=== PATIENT | male | born 1950 | race Caucasian/White ===

== ENCOUNTER 2020-02-25 12:34 | Outpatient (REF) | payer MEDICARE, MEDICAID, OTHER, SELFPAY ==
--- NOTE | 2020-02-25 12:43 | XR_ITS ---
EXAMINATION: XR PELVIS CLINICAL INFORMATION: Right artificial hip joint COMPARISON: None TECHNIQUE: AP view of the pelvis. Crosstable lateral view of the right hip. FINDINGS: There is a total right hip arthroplasty. The femoral head component articulates appropriately with the acetabular component. No periprosthetic lucency or fracture. The left hip is well aligned. There is moderate joint space narrowing with subchondral sclerosis and osteophyte formation. Mild degenerative changes of the lower lumbar spine. The pelvic rim is intact. The sacroiliac joints and pubic symphysis are intact. The visualized bowel gas pattern is unremarkable. IMPRESSION: Total right hip arthroplasty in typical positioning and alignment. Moderate degenerative changes of the left hip.
== END 2020-02-25 12:35 | disposition home or self-care (01) ==
LOC: HO.XRAY 12:34
PROVIDERS: PCP Internal Medicine; Referring Provider Internal Medicine; Visit Provider Orthopaedic Surgery
DX: T84.84XA Pain due to internal orthopedic prosthetic devices, implants and grafts, initial encounter (principal); Z96.641 Presence of right artificial hip joint
CPT/HCPCS: 72170; 99212

== ENCOUNTER 2020-06-10 11:10 | Outpatient (REF) | payer MEDICARE, MEDICAID, SELFPAY ==
--- NOTE | 2020-06-10 16:05 | MHC.AU.P13 ---
Adult Audiological Evaluation Date of Visit: 06/10/20 Reason for Appointment: Audiological evaluation due to concern for hearing loss. Patient notes that he has difficulties hearing and understanding speech in most situations. He notes that his hearing seems to worsening over time. 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 Does patient feel they have a hearing loss?: Yes If Yes, Which Ear?: Both Ears When Was Hearing Difficulty First Noticed?: 1997 Has hearing been tested previously?: Yes Previous Hearing Test Results: Patient notes he was tested at a hearing clinic in [place] at the [facility] in 1997 and he was told he had a hearing loss at that time. Hearing Handicap Inventory: HHIE SCORE: 28 Based on HHIE score, patient has: Severe perceived hearing handicap Ear History: History of Ear Wax Buildup: Both Ears, worse in left Bothersome Tinnitus/Ringing/Noises in Ears: Both Ears Medical History: Medical History: Dizziness or Unsteadiness, Headache, Stroke Medical History (Other): Right hip replacement 01/12/2020 Allergies: Bee stings Otoscopy: Right Ear: Unremarkable Left Ear: Occluded with cerumen. Removed successfully with curette and suction. Tympanometry: Tympanometry performed due to: To determine if cerumen blockage is fully occluding canal(s) Right Ear: Normal Middle Ear System (Type A) Left Ear: Normal Middle Ear System (Type A) Hearing Evaluation: Transducer(s) Used: Insert Earphones, Bone Conduction Method: Conventional Audiometry Stimuli Used: Pure Tones Right Ear: Description of Hearing: Moderate sloping to moderately severe sensorineural hearing loss from 250-8000 Hz. Left Ear: Description of Hearing: Moderate sloping to severe sensorineural hearing loss from 250-8000 Hz. Speech Recognition Threshold (SRT): Method Used: Monitored Live Voice Stimuli Used: Spondee Words Right Ear: 50 dBHL Left Ear: 50 dBHL Word Discrimination: Method: Recorded Lists Word Lists Used: NU-6 Right Ear: 60% at 75 dBHL, 88% at 80 dBHL Left Ear: 92% at 80 dBHL Most Comfortable Level (MCL): Right Ear: 70 dBHL Left Ear: 65 dBHL Recommendations: Audiological re-evaluation in one year. Trial with amplification is recommended. Binaural amplification is recommended to facilitate improved communication and for Mr. Berger's safety to alert him to sounds in his environment. He will contact his health insurance company regarding benefits and consider his options. Diagnosis: Primary Diagnosis: H90.3 Bilateral Sensorineural Hearing Loss Secondary Diagnosis: H93.13 Tinnitus, Bilateral Services Performed: Services Performed: Comprehensive Audiological Evaluation (CPT 03218) Tympanometry (CPT 48376) Signature: Provider: Jacque Lugo, CCC-A
== END 2020-06-10 11:11 | disposition home or self-care (01) ==
LOC: HO.SH 11:10
PROVIDERS: Visit Provider Internal Medicine
DX: H90.3 Sensorineural hearing loss, bilateral (principal); H93.13 Tinnitus, bilateral
CPT/HCPCS: 92557; 92567

== ENCOUNTER 2022-12-06 09:50 | Outpatient (REF) | payer MEDICARE, MEDICAID, SELFPAY ==
[2022-12-06 13:02] LABS: Prostate Specific Antigen 1.11 ng/mL (<0.05-4.0)
== END 2022-12-06 09:51 | disposition home or self-care (01) ==
LOC: HO.HHCL 09:50
PROVIDERS: Visit Provider Registered Nurse
DX: N40.1 Benign prostatic hyperplasia with lower urinary tract symptoms (principal); R39.16 Straining to void; Z12.5 Encounter for screening for malignant neoplasm of prostate
CPT/HCPCS: 36415; 84153

== ENCOUNTER 2024-02-19 14:16 | Outpatient (REF) | payer MEDICARE, MEDICAID, SELFPAY ==
--- NOTE | ~2024-02-19 | XR_ITS ---
EXAMINATION: XR HIP, LEFT CLINICAL INFORMATION: Left hip pain COMPARISON: February 2020. TECHNIQUE: Two views of the left hip. FINDINGS: No evidence for acute fracture or dislocation. Prominent acetabular spurring and left hip degenerative joint space narrowing similar to the previous evaluation. No acetabular or pubic disruption. There are spurring changes in the left greater trochanter which appears similar. Prostate calcifications noted. XR/XR hip LT min 2V IMPRESSION: No acute process. Degenerative changes. Electronically signed by: Varun Deleon MD 02/19/2024 04:55 PM EDT RP
--- NOTE | ~2024-02-19 | XR_ITS ---
EXAMINATION: XR KNEE, RIGHT CLINICAL INFORMATION: Right knee pain COMPARISON: None available. TECHNIQUE: Three views of the right knee. FINDINGS: No evidence for acute fracture or dislocation. No osteochondral lesions seen. No erosive process. Fibular head within normal limits. Small spurring of the patella. There is no significant joint effusion. XR/XR knee RT 3V IMPRESSION: No acute process. Small spurring of the patella. Electronically signed by: Varun Deleon MD 02/19/2024 04:51 PM EDT
--- NOTE | ~2024-02-19 | XR_ITS ---
EXAMINATION: XR HIP, RIGHT CLINICAL INFORMATION: Right hip pain COMPARISON: February 2020. TECHNIQUE: Two views of the right hip. FINDINGS: Right hip prosthesis in position. Acetabular spurring again observed. There is small spurring in the intertrochanteric region which appears to be stable. The hip prosthesis appears to be intact. No periprosthetic loosening seen. XR/XR hip RT min 2V IMPRESSION: No evidence for acute fracture or dislocation. Right hip prosthesis in position with stable osseous alignment since previous evaluation. Degenerative changes. Electronically signed by: Varun Deleon MD 02/19/2024 04:53 PM EDT
--- NOTE | ~2024-02-19 | XR_ITS ---
EXAMINATION: XR KNEE, LEFT CLINICAL INFORMATION: Left knee pain COMPARISON: None available. TECHNIQUE: Three views of the left knee. FINDINGS: No evidence for acute fracture or dislocation. There are no osteochondral lesions or distinct erosions. Slight chondrocalcinosis observed. Fibular head is intact. There is a small suprapatellar effusion. Small spurring of the patella is observed. XR/XR knee LT 3V IMPRESSION: 1. No acute process. Small suprapatellar effusion. 2. Slight chondrocalcinosis. Electronically signed by: Varun Deleon MD 02/19/2024 04:50 PM EDT
== END 2024-02-19 14:17 | disposition home or self-care (01) ==
LOC: HO.HHCX 14:16
PROVIDERS: Visit Provider Student in an Organized Health Care Education/Training Program
DX: M25.551 Pain in right hip (principal); M25.552 Pain in left hip; M25.561 Pain in right knee; M25.562 Pain in left knee; G89.29 Other chronic pain
CPT/HCPCS: 73502; 73562

== ENCOUNTER 2024-04-16 08:13 | Outpatient (REF) | payer MEDICARE, MEDICAID, SELFPAY ==
--- OUTSIDE RECORDS SUMMARY | 2024-04-21 23:52 | XMS_ITS | Data Portability ---
Author Organization [place] - [facility], [facility] Address [address] [place] [address] Care Team Providers Care Virtual Recruiter Name Role Phone [facility] Primary Care Provider Assessment Encounter Date Assessment Date Assessment LastModified by Organization Details LastModified Time 01/01/2024 01/01/2024 Recommendatio ns: Follow up with referring provider. Amplification , pending medical clearance and pt interest. At this time he cannot afford hearing aids. [email or web address] Not available 01/01/2024 13:13:16 Plan of Treatment Reminders Order Date Submit Date Provider Last Modified By Organization Details Last Modified Time Details Appointments Hearing Test 2024 10:00A M Hearing Test Not available Not available Not available Establish ed 30 2024 10:30A M OLMAN Horn MD Not available Not available Not available Lab None recorded. Referral None recorded. Procedures None recorded. Surgeries None recorded. Imaging None recorded. Medication Orders None recorded. Patient TargetsNo targets recorded. Patient InstructionsNo instructions recorded. Reason for Referral None Reported. Results Created Date Observation Date Name Description Value Unit Range Abnormal Flag Note LastModifiedBy Organization Detail LastModifiedTime 01/01/20 24 audio gram No observ ation record ed. [email or web address] Not Available 12/12 16:24:01 Result Notes None recorded. Problems Name Problem SNOMED Code Status Onset Date Resolution Date Notes Provider Name and Address Organization Details Recorded Time Sensorineur al hearing loss of bilateral ears 586680111 Active 2023 PAUL GUDINO, ANNELISE 100 [facility] [address], [place], [address] [place] [address] - [facility] 13:06:10 Bilateral tinnitus 0678741405939 Active 2023 OLMAN Horn MD [address] [address], [place], [address], [facility] - [facility] 4 13:32:18 Impacted cerumen of bilateral ears 5266221732415 108 Active 2023 OLMAN Horn MD [address] [address], [place], [address], [facility] - [facility] 13:37:57 Problem Notes None recorded. Procedures Surgical History Date Name Laterality Status Provider Name and Address Organization Details Recorded Time Comp Audio with Tymps (30164 & 88115) completed ANNELISE CESPEDES [address], [address], [facility] 01/01/2024 13:06:05 Cerumen removal without microscope completed OLMAN BARFIELD MD [address] [address], [place], [address], [facility] - [facility] 01/01/2024 13:38:52 partial right hip replacement by prosthesis completed Bettie Bautista [facility] 01/01/2024 12:43:26 Imaging Results Imaging Date Name Status LastModified by Organiz ation Details LastModified Time 01/01/2024 audiogram completed [email or web address] Information n ot available 01/01/2024 16:24:01 Procedure Notes None recorded. Medical Equipment None Reported. Allergies No known drug allergies Medications Name Sig Start Date Stop Date Status Note LastModified by Organization Details LastModified Time losartan 50 mg tablet TAKE 1 TABLET BY MOUTH EVERY DAY active Not Available Not Available No t Available aspirin 81 mg tablet,delay ed release TAKE 1 TABLET BY MOUTH EVERY DAY IN THE MORNING active Not Available Not Available No t Available tamsulosin 0.4 mg capsule TAKE 1 CAPSULE BY MOUTH EVERY DAY 30 MINUTES AFTER SUPPER active Not Available Not Available No t Available ciprofloxaci n 0.3 %-dexamethas one 0.1 % ear drops,suspen meaghan 12/31 completed Not Available Not Available Not Available rosuvastatin 10 mg tablet TAKE 1 TABLET BY MOUTH EVERY DAY IN THE MORNING active Not Available Not Available No t Available FreeStyle Lite Strips TEST BLOOD SUGAR FOUR TIMES DAILY active Not Available Not Available No t Available Easy Touch Twist Lancets 33 gauge USE TO TEST BLOOD SUGAR FOUR TIMES DAILY active Not Available Not Available No t Available Jardiance 10 mg tablet TAKE 1 TABLET BY MOUTH EVERY DAY IN THE MORNING active Not Available Not Available No t Available Vitals Date Recorded Body height Body mass index (BMI) Body weight Provider Name and Address Organization Details Last Updated DateTime 01/01/2024 170.18 cm 27.4 kg/m2 18067.66 g Bettie Bautista [place] - [facility] 01/01/2024 13:22:27 Social History None recorded. Functional Status None recorded. Mental Status None recorded. Family History Nothing Reported. Medical History No medical history recorded. Past Encounters Encounter ID Performer Location Encounter Start Date Encounter Closed Date Diagnosis/Indication Diagnosis SNOMED-CT Code Diagnosis ICD10 Code [id number] OLMAN BARFIELD MD [facility] [address] [address] 01/01/2024 12:22:34 01/01/2024 15:23:07 Sensorineural hearing loss of bilateral ears 795613000 H90.3 Bilateral tinnitus 07057 40976 102 H93.13 Impacted c erumen of bilateral ears 4109722668 656047 H61.23 [id number] ANNELSIE CESPEDES [facility] [address] [address] 01/01/2024 13:04:42 01/01/2024 15:09:18 Sensorineural hearing loss of bilateral ears 888820188 H90.3 Health Concerns Section Related Observation LastModified by Organization Detai ls LastModified Time None Recorded Concern Status LastModified by Organization Details LastModified Time None Recorded Advance Directives Directive None Recorded Payers Encounter Date Sequence Insurance Name Policy Number Policy Lambert Covered Member ID Lambert Member ID Guarantor Name 01/01/2024 1 [place]: [employer] Parker Berger [id number] Parker Berger 01/01/2024 1 [place] [employer] Parker Berger [id number] Parker Berger Notes Date Note Type Note Provider Name and Address Organization Details Recorded Time 01/01/2024 text/html Hx of cerumen impaction. He noted worse hearing . He flushed his left ear and felt the hearing got worse. He had his ear cleaned at the [facility] and later he noted improved hearing . OLMAN BARFIELD MD [address], [address], [facility] 01/01/2024 13:39:17 01/01/2024 text/html Audiological Evaluation HPIReported bypatient.Hearing loss perceived:hearing loss in both ears: no differences noted between ears Onset:gradual Use of amplification or other hearing devices:none (does not use amplification) ANNELISE CESPEDES [address] [address], [place], [address], [facility] 01/01/2024 13:18:02
== END 2024-04-16 08:14 | disposition home or self-care (01) ==
LOC: HO.MRI 08:13
PROVIDERS: PCP Student in an Organized Health Care Education/Training Program; Visit Provider Student in an Organized Health Care Education/Training Program
DX: R41.3 Other amnesia (principal)
CPT/HCPCS: 70551

== ENCOUNTER 2024-04-16 08:58 | Outpatient (REF) | payer MEDICARE, MEDICAID, SELFPAY | END 2024-04-16 08:59 | disposition home or self-care (01) | LOC: HO.US 08:58 | PROVIDERS: PCP Student in an Organized Health Care Education/Training Program; Visit Provider Student in an Organized Health Care Education/Training Program | DX: Z13.6 Encounter for screening for cardiovascular disorders (principal); Z87.891 Personal history of nicotine dependence | CPT/HCPCS: 70551; 76775 ==

== ENCOUNTER 2024-04-24 14:41 | Outpatient (REF) | payer MEDICARE, MEDICAID, SELFPAY ==
--- OUTSIDE RECORDS SUMMARY | 2024-04-24 14:43 | XMS_ITS | Data Portability ---
Author Organization [place] - [facility], [facility] Address [address] [place] [address] Care Team Providers Care Phone Counselor Name Role Phone [facility] Primary Care Provider [phone] Assessment Encounter Date Assessment Date Assessment LastModified [...] audio gram No observ ation record ed. Not Available 12/12 16:24:01 Result Notes None recorded. Problems Name Problem SNOMED Code Status Onset Date Resolution Date Notes Provider Name and Address Organization Details Recorded Time Sensorineur al hearing loss of bilateral ears 290752440 Active 2023 PAUL GUDINO, ANNELISE 100 [facility] [address], [place], [address] [place] [address] - [facility] 13:06:10 Bilateral tinnitus 5545515755430 Active 2023 OLMAN Horn MD [address] [address], [place], [address], [facility] - [facility] 4 13:32:18 Impacted cerumen of bilateral ears 1409331891984 108 Active 2023 OLMAN Horn MD [address] [address], [place], [address], [facility] - [facility] 13:37:57 Problem Notes None recorded. Procedures Surgical History Date Name Laterality Status Provider Name and Address Organization Details Recorded Time Comp Audio with Tymps (04769 & 16089) completed ANNELISE CESPEDES [address], [address], [facility] 01/01/2024 13:06:05 Cerumen removal without microscope completed OLMAN BARFIELD MD [address] [address], [place], [address], [facility] - [facility] 01/01/2024 13:38:52 partial right hip replacement by prosthesis completed Bettie Bautista [facility] 01/01/2024 12:43:26 Imaging Results Imaging Date Name Status LastModified by Organiz ation Details LastModified Time 01/01/2024 audiogram completed [email or web address] Information n ot available 01/01/2024 16:24:01 Procedure [...] Updated DateTime 01/01/2024 170.18 cm 27.4 kg/m2 01922.66 g Bettie Bautista [place] - [facility] 01/01/2024 13:22:27 Social History None recorded. Functional Status None recorded. Mental Status None recorded. Family History Nothing Reported. Medical History No medical history recorded. Past Encounters Encounter ID Performer Location Encounter Start Date Encounter Closed Date Diagnosis/Indication Diagnosis SNOMED-CT Code Diagnosis ICD10 Code [id number] OLMAN BARFIELD MD [facility] [address] [address] 01/01/2024 12:22:34 01/01/2024 15:23:07 Sensorineural hearing loss of bilateral ears 359513277 H90.3 Bilateral tinnitus 54215 28975 102 H93.13 Impacted c erumen of bilateral ears 8658046651 912381 H61.23 [id number] ANNELISE CESPEDES [facility] [address] [address] 01/01/2024 13:04:42 01/01/2024 15:09:18 Sensorineural hearing loss of bilateral ears 465366856 H90.3 Health Concerns Section Related Observation LastModified by Organization Detai ls LastModified Time None Recorded Concern Status LastModified by Organization Details LastModified Time None Recorded Advance Directives Directive None Recorded Payers Encounter Date Sequence Insurance Name Policy Number Policy Lambert Covered Member ID Lambert Member ID Guarantor Name 01/01/2024 1 [place] [employer] Parker Berger [id number] Parker Berger 01/01/2024 1 [place] [employer] Parker Berger [id number] Parker Berger Notes Date Note Type Note Provider Name and Address Organization Details Recorded Time 01/01/2024 text/html Hx of cerumen impaction. He noted worse hearing . He flushed his left ear and felt the hearing got worse. He had his ear cleaned at the [facility] and later he noted improved hearing . OLMAN BARFIELD MD [address], [address], [facility] 01/01/2024 13:39:17 01/01/2024 text/html Audiological Evaluation HPIReported bypatient.Hearing loss perceived:hearing loss in both ears: no differences noted between ears Onset:gradual Use of amplification or other hearing devices:none (does not use amplification) ANNELISE CESPEDES [address] [address], [place], [address], [facility] 01/01/2024 13:18:02
[2024-04-24 16:11] LABS: Hematocrit 46.1 % (42.0-52.0); Hemoglobin 15.3 g/dl (14.0-18.0); Mean Corpuscular HGB Conc 33.2 g/dl (31.0-36.0); Mean Corpuscular Hemoglobin 29.5 pg (27.0-33.0); Mean Platelet Volume 10.5 fL (9.4-12.4); Platelet Count 151 X10*3/uL (160-400); Red Blood Count 5.18 X10*6/uL (4.60-5.80); Red Cell Distribution Width 13.4 % (11.0-16.0); White Blood Count 7.5 X10*3/uL (4.8-10.8)
[2024-04-24 16:24] LABS: Estimated Average Glucose 157 mg/dL; Hemoglobin A1C 202.5789 umol/L; Hemoglobin A1c % 7.1 % (<6.0); Total Hemoglobin (HGBA1C) 3783.3997 umol/L
[2024-04-24 16:38] LABS: Alanine Aminotransferase 21 U/L (0-40); Albumin Level 4.4 g/dL (3.5-5.0); Alkaline Phosphatase 82 U/L (39-117); Anion Gap 11 (12-20); Aspartate Amino Transferase 21 U/L (5-37); Bilirubin Total 0.6 mg/dL (0.0-1.0); Blood Urea Nitrogen 24 mg/dL (9-16); Calcium 9.5 mg/dL (8.4-10.2); Carbon Dioxide 27 mmol/L (22-29); Chloride 106 mmol/L (96-108); Cholesterol 155 mg/dL (<200); Estimated Glomerular Filt Rate > 60; Glucose Random 176 mg/dL (60-115); HDL Cholesterol 62 mg/dL (>40); LDL Cholesterol Calculated 72 mg/dL (<100); Potassium 4.2 mmol/L (3.3-5.1); Sodium 140 mmol/L (135-145); Total Protein 8.3 g/dL (6.5-8.0); Triglycerides 105 mg/dL (<150)
[2024-04-24 16:45] LABS: TSH reflex Free T4 2.57 uIU/mL (0.32-4.0)
[2024-04-24 16:59] LABS: Folate 13.4 ng/mL (> or = 4.0); Prostate Specific Antigen 3.32 ng/mL (<0.05-4.0); Vitamin B12 700 pg/mL (200-900)
[2024-04-24 17:03] LABS: Creatinine Urine 42.47 mg/dL; Microalbum/Creatinine Ratio Ur 44.7 ug/mg cr (<30)
[2024-04-24 18:47] LABS: CT PCR NOT DETECTED (Not Detect.); NG PCR NOT DETECTED (Not Detect.)
[2024-04-25 08:51] LABS: HBS Num1 909.93 mIU/mL (0-7.99); HBc Num1 6.73 S/CO (0.00-0.79); HBsAGNum1 0.44 S/CO (0.00-0.99); HIV AB/AG Nonreactive (Nonreactive); HIV Num 1 0.06 S/CO (0.00-0.99); Hepatitis B Surface Antigen Negative (Negative); ~Hepatitis B Surface Antibody REACTIVE (Nonreactive); ~Hepatitis C Antibody Nonreactive (Nonreactive)
[2024-04-25 08:54] LABS: Syphilis Screen Reactive (Nonreactive)
[2024-04-25 13:21] LABS: HBc Num2 6.58 S/CO; HBc Num3 6.67 S/CO; Hepatitis B Core Antibody Reactive (Nonreactive)
[2024-05-03 13:32] LABS: RPR Quantitative Non-Reactive (Nonreactive); T.Pallidum Particle Agg Test Reactive (Nonreactive)
== END 2024-04-24 14:42 | disposition home or self-care (01) ==
LOC: HO.HHCL 14:41
PROVIDERS: Visit Provider Student in an Organized Health Care Education/Training Program
DX: Z00.00 Encounter for general adult medical examination without abnormal findings (principal); Z11.3 Encounter for screening for infections with a predominantly sexual mode of transmission; Z11.59 Encounter for screening for other viral diseases; Z12.5 Encounter for screening for malignant neoplasm of prostate; Z13.1 Encounter for screening for diabetes mellitus; Z72.89 Other problems related to lifestyle
CPT/HCPCS: 36415; 80053; 80061; 82043; 82570; 82607; 82746; 83036; 84153; 84443; 85027; 86592; 86704; 86706; 86780; 86803; 87340; 87389; 87491; 87591

== ENCOUNTER 2024-09-17 11:50 | Outpatient (REF) | payer MEDICARE, MEDICAID, SELFPAY ==
--- NOTE | ~2024-09-17 | CT_ITS ---
CLINICAL HISTORY: DUODENAL THICKENING CT abdomen and pelvis with contrast Comparison: None Findings: No consolidation or effusion. Moderate degenerative changes seen at the left hip. The patient is status post right total hip replacement. There is a 1.5 cm left renal cyst and a small right renal cyst. Gallbladder and the solid organs are otherwise unremarkable. The rest of the GI tract is unremarkable. The duodenum appears unremarkable. There is a right inguinal hernia containing fat only. There is colonic diverticulosis without evidence of diverticulitis. No acute fracture. IMPRESSION: No acute findings. Other findings as above. This document has been electronically signed by: Raúl Woodson MD on 09/18/2024 11:44:17
--- OUTSIDE RECORDS SUMMARY | 2024-09-17 13:23 | XMS_ITS | Encounter Summary ---
Author Organization Kalyn Abe[facility] Address [address] [place] [address] Care Team Providers Care First Cook Name Role Phone Mamadou Patel MD Primary Care Provider [phone] Dominique Santamaria MD Primary Care Provider evelyne Encounter Details Date Type Department Care Team Description 06/16/2018 Orders Only Adult Medicine A - [address] [address] Whitley Nugent APRN [address] [place] [address] Social History Tobacco Use Types Packs/Day Years Used Date Smoking Tobacco: Former Smokeless Tobacco: Never Comments:quit on 1987 Alcohol Use Standard Drinks/Week Comments No 0 (1 standard drink = 0.6 oz pur e alcohol) Sex Assigned at Date Recorded Not on file documented as of this encounter Plan of Treatment Not on file documented as of this encounter Visit Diagnoses Not on filedocumented in this encounter Care Teams First Cook Relationship Specialty Start Date End Date Mamadou Patel MD [address] [place] [address] PCP - General Internal Medicine 10/28/17 01/20/24 Dominique Santamaria MD [address] [place] [address] PCP - General Internal Medicine 01/21/24 documented as of this encounter
--- OUTSIDE RECORDS SUMMARY | 2024-09-17 13:23 | XMS_ITS | Clinical Summary ---
Author Organization [employer] Address [address] [place] [address] [address] [place] [address] Care Team Providers Care Wash Mill Operator Name Role Phone Dominique Santamaria MD Primary Care Pro vider Allergies Active Allergy Reactions Criticality Noted Date Comments Bee Venom Swelling 11/07/2017 Angioedema Tramadol 10/17/2020 Other reaction(s): Nausea / Vomiting Medications TRUEplus Lancets 33G miscIndications: Type 2 diabetes mellitus with other specified complication, unspecified whether superintendent marine oil terminal insulin use ([facility]) Inject 1 Lancet under the skin in the morning, at noon, in the evening, and at bedtime. 100 each 6 2 Active Blood Pressure Monitoring (Omron 3 Series BP Monitor) device USE TO CHECK BLOOD PRESSURE 2 Active ezetimibe (Zetia) 10 MG tabletIndication s:Dyslipidemia TAKE 1 TABLET BY MOUTH EVERY DAY 90 tablet 3 3 Active Additional Information Patient not taking.Reported on 03/19/2024 EPINEPHrine (Epipen) 0.3 MG/0.3ML injection syringe Inject 0.3 mL (0.3 mg) as directed 1 (one) time if needed for anaphylaxis for up to 1 dose. Inject into upper leg. Call 911 after use. 1 each 1 4 Active rosuvastatin (Crestor) 10 MG tabletIndication s:Dyslipidemia TAKE 1 TABLET BY MOUTH EVERY DAY IN THE MORNING 90 tablet 1 4 Active tamsulosin (Flomax) 0.4 MG 24 hr capsuleIndicatio ns:Benign prostatic hyperplasia, unspecified whether lower urinary tract symptoms present TAKE 1 CAPSULE BY MOUTH EVERY DAY 30 MINUTES AFTER SUPPER 90 capsule 1 4 Active losartan (Cozaar) 50 MG tabletIndication s:Primary hypertension TAKE 1 TABLET BY MOUTH EVERY DAY 90 tablet 1 4 Active Aspirin Low Dose 81 MG EC tablet TAKE 1 TABLET BY MOUTH EVERY MORNING 90 tablet 5 Active glucose blood (FREESTYLE LITE) test stripIndications :Type 2 diabetes mellitus with other specified complication, unspecified whether senior living insulin use ([facility]) TEST BLOOD SUGAR EVERY DAY 50 each 11 5 Active empagliflozin (Jardiance) 25 MG Take 1 tablet (25 mg) by mouth Once per day. 90 tablet 5 08/14/19 26 Active Active Problems Problem Noted Date Diagnosed Date History of syphilis 08/15/2024 Hearing loss 01/16/[address] scan 01/16/2024 History of tobacco use 01/16/2024 HTN (hypertension) 01/16/2024 Obesity 01/16/2024 Benign prostatic hyperplasia (BPH) with straining on urination 12/22/2022 Overview (12/22/2022): Reports tamsulosin 0.4mg is not improving sx anymore. Was prescribed about 1 year ago. Never had PSA performed. Assessment & Plan (12/22/2022 10:46 PM EDT): Will order PSA lab Notify results Continue flomax 0.4mg F/u 3 months or sooner PRN Sinus bradycardia 12/22/2022 Overview (12/22/2022): Reports he had Cardiology eval in the past. No records. BP well-controlled. Pulse ranging 40-50s. Assessment & Plan (12/22/2022 10:48 PM EDT): Will task MA and RN to locate previous cardiology Referred Cardiology 06/18/22 Will check on Cardiology referral F/u 3 months or sooner PRN Memory loss 12/22/2022 Overview (12/22/2022): Worsening over the last year. Short-term memory loss. Also reports feelings of excessive anger toward himself. Has mental health therapy. Assessment & Plan (12/22/2022 10:54 PM EDT): Refer to Neurology for further eval of mood changes + memory changes F/U 3 months or sooner PRN Health care maintenance 06/18/2022 Overview (12/22/2022): Routine Health Maintenance: Immunizations: PCV 20 on 12/11/21. Hx of 2 shingles vaccines per patient. Declines flu today. HIV: Discuss next visit Hep C: Nonreactive 06/12/22 Hep B: Discuss next visit Colonoscopy: Cologuard negative 01/17/22, repeat in 3 years PSA: Ordered 12/06/22 Lung cancer: Not a candidate, quit 33 years ago Eye: Had eye appt 2022 Dental: Due. Has no teeth, full dentures, doesn't wear due to poor fit. Encouraged pt to go for a refitting Anxiety 06/12/2022 Dyslipidemia 01/24/2021 Overview (12/22/2022): Elevated lipid panel 06/12/22 Treating Zetia 10 mg daily Assessment & Plan (12/22/2022 10:55 PM EDT): Continue low fat diet Rx Rosuvastatin 10 mg daily Avoid grapefruit juice Educated SE: notify clinic with urine color changes or muscle pains F/u 3 months or sooner PRN Cataract 12/23/2017 Overview (06/12/2022): Bilateral Diabetes mellitus type 2, uncomplicated 11/20/19 18 Overview (06/18/2022): Will order albumin to check for microalbuminuria, lipid panel, and CMP Last a1c: 6.6 on 12/11/21 Assessment & Plan (12/22/2022 10:56 PM EDT): A1c 6.4 on 12/06/22 Glucose: 144 on 12/06/22 Continue Jardiance 10 mg F/u PRN Atrial fibrillation 11/07/2017 Overview (12/22/2022): Holter monitor (11/28/17): Normal sinus rhythm with sinus bradycardia, heart range was 47-135 beats a minute with an contracts director 6-7 bpm. Sinus bradycardia was 10 hours. Rare PACs. Frequent PVCs. Assessment & Plan (12/22/2022 10:49 PM EDT): Will task MA and RN to locate previous cardiology Referred Cardiology 06/18/22 Will check on Cardiology referral F/u 3 months or sooner PRN Depression 11/07/2017 History of substance abuse 11/07/2017 Osteoarthritis of multiple joints 11/07/2017 Overview (12/22/2022): R hip arthroplasty 01/12/2020 Chronic OA hips/knees Assessment & Plan (12/22/2022 10:51 PM EDT): Declines referral to Ortho Rx Lidocaine patches & Voltaren gel Followup 3 months or sooner PRN Vitamin D insufficiency 11/07/2017 Resolved Problems Problem Noted Date Diagnosed Date Resolved Date Hyperlipidemia 11/19/2017 06/18/2022 Encounters Date Type Department Care Team Description 08/27/2024 Orders Only [facility] [address] [place] [address] Dominique Santamaria MD Abnormal finding on CT scan (Primary Dx) 08/19/2024 Orders Only [facility] [address] [place], [place] [phone] Dominique Santamaria MD 08/19/2024 Telephone [facility] [address] [place], [place] [phone] Dominique Santamaria MD CT ABD ORDER 08/13/2024 11:15 AM EDT Office Visit [facility] [address] [place], [place] [phone] Dominique Santamaria MD Hypertension, unspecified type (Primary Dx); Type 2 diabetes mellitus without complication, without long-term current use of insulin (CMS/HCC); Dietary counseling; Exercise counseling; History of substance abuse (CMS/HCC); Longstanding persistent atrial fibrillation (CMS/HCC); Abnormal finding on CT scan; Class 1 obesity due to excess calories without serious comorbidity with body mass index (BMI) of 30.0 to 30.9 in adult; Health care maintenance; History of tobacco use; History of syphilis 08/13/2024 Telephone [facility] [address] [place] [address] Dominique Santamaria MD Referral 08/13/2024 Travel 08/03/2024 Telephone [facility] [address] [place] [address] Dominique Santamaria MD Chart Prep 07/24/2024 Population Health Risk Score [facility] () Department [address] [phone] Provider, Population Health Generic 07/20/2024 [facility] MEDICINE [address] [place] [address] Dominique Santamaria MD Med Refill 07/20/2024 Refill [facility] [address] [place] [address] Dominique Santamaria MD Type 2 diabetes mellitus with other specified complication, unspecified whether senior living insulin use ([facility]) 06/26/2024 [facility] MEDICINE [address] [place] [address] Dominique Santamaria MD Results from Last 3 Months Immunizations Name Administration Dates Next Due Pfizer Covid-19 Vaccine 12+ 02/12/2024 Pneumococcal Conjugate PCV 20 12/11/2021 RSV Bivalent 03/26/2024 Tdap 10/17/2020 Zoster, Recombinant 03/26/2024 Family History Medical History Relation Name Comments Alcohol abuse Father lung cancer fpor smoking ,MS,stronke Mother Relation Name Status Comments Father Mother Social History Tobacco Use Types Packs/Day Years Used Date Smoking Tobacco: Former Cigarettes Smokeless Tobacco: Never Tobacco Cessation:Counseling Given: Not Answered Comments:Started smoking 21 y of age and stopped at 37 y of age , used to smoke 2 PQT a day ,stopped 36 y ago PQT calc 72 a year Alcohol Use Standard Drinks/Week Comments Yes 0 (1 standard drink = 0.6 oz pur e alcohol) social Depression Answer Date Recorded Patient Health Questionnaire-9 Score 7 04/30/2024 Patient Health Questionnaire-9 Score 7 04/30/2024 Last PHQ-9: Questionnaire Data Not on file 1 07/01/2023 Housing Stability Answer Date Recorded What is your housing situation today? I have salma carreno 01/01/[address] you li ve. Do you have problems with any of the following? None of the above 01/01/2024 Food Insecurity Answer Date Recorded Within the past 12 months, y ou worried that your food would run out before you got money to buy more: Often true 01/01/2024 Within the past 12 months,th e food you bought just didn't last and you didn't have enough money to get more: Often true Transportation Answer Date Recorded In the past 12 months, has l ack of transportation kept you from medical appts, meetings, work or from getting things needed for daily living? No 01/01/2024 Utilities Answer Date Recorded In the past 12 months, has t he electric, gas, oil or water company threatened to shut off services in your home? No 01/01/2024 Depression Answer Date Recorded Patient Health Questionnaire-2 Score 1 04/30/2024 Internet Access Answer Date Recorded Internet Access Q1 No 01/10/2024 Internet Access Q2 I do not want or need it 12/13 Sex and Gender Information Value Date Recorded Sex Assigned at Male 03/12/2022 10:36 AM EDT Legal Sex Male 10:36 AM EDT Gender Identity Male 03/12/2022 10:36 AM EDT Sexual Orientation Straight 01/16/2024 11 :08 AM EDT Last Filed Vital Signs Vital Sign Reading Time Taken Comments Blood Pressure 138/67 08/13/2024 11:33 AM EDT Pulse 70 08/13/2024 11:33 AM EDT Temperature 36.2 ??C (97.1 ??F) 08/13/2024 11:33 AM E DT Respiratory Rate 20 08/13/2024 11:33 AM EDT Oxygen Saturation 98% 08/13/2024 11:33 AM EDT Inhaled Oxygen Concentration - - Weight 88.5 kg (195 lb) 08/13/2024 11:33 AM EDT Height 170.2 cm (5' 7 ) 08/13/2024 11:33 AM EDT Body Mass Index 30.54 08/13/2024 11:33 AM EDT Plan of Treatment Upcoming Encounters Date Type Department Care Team (Late st Contact Info) Description 11/12/2024 2:15 PM EDT Office Visit [facility] MEDICINE [address] [place] [address] Dominique Santamaria MD [address] [place] [address] 12/10/2024 3:00 PM EDT Office Visit [facility] OPTOMETRY [address] [place], [place] [phone] Leticia Grady, OD [address] [place], [place] [phone] Health Maintenance Due Date Last Done Comments CT Colonography 1952 Colonoscopy 1952 Colorectal Cancer Screening 1952 FIT DNA/Cologuard 1952 FIT 1952 FOBT 1952 Sigmoidoscopy 1952 Diabetes: Foot Exam 1962 Influenza Vaccine (#1) 2024 Zoster Vaccines (2 of 2) 05/21/2024 03/26/2024 Eye Exam 10/25/2024 10/25/2022, 10/11, 10/25/2022, Additional history exists Diabetes: Hemoglobin A1C 11/12/2024 025, 04/24/2024, 01/16/2024, Additional history exists SDOH Screening 12/31/2024 01/01/2024 Diabetes: Urine Protein Screening 04/24/2025 04/24/2024, 06/12/2022, 2020 Lipid Panel 04/24/2025 04/24/2024, 05/15, 12/11/2021, Additional history exists Alcohol/Substance Use Screening 04/30/2025 04/30/2024 Depression Screening 04/30/2025 04/30/2024, 04/30/20 24 Tobacco Screening 08/13/2025 08/13/2024 DTaP/Tdap/Td Vaccines (2 - Td or Tdap) 10/17/2030 10/17/2020 Pneumococcal Vaccine: 50+ Years Completed 12/11/2021 COVID-19 Vaccine Completed 02/12/2024, 04/2021, 10/28/2020 RSV Patients and Patients Aged 60 years or older Completed 03/26/2024 Hepatitis C Screening Completed 04/24/2024, 023 HIB Vaccines Aged Out No longer eligi ble based on patient's age to complete this topic HPV Vaccines Aged Out No longer eligi ble based on patient's age to complete this topic Hepatitis A Vaccines Aged Out No long er eligible based on patient's age to complete this topic Hepatitis B Vaccines Aged Out No long er eligible based on patient's age to complete this topic IPV Vaccines Aged Out No longer eligi ble based on patient's age to complete this topic Meningococcal Vaccine Aged Out No janee reny eligible based on patient's age to complete this topic RSV under 20 months Aged Out No longe r eligible based on patient's age to complete this topic Rotavirus Vaccines Aged Out No longer eligible based on patient's age to complete this topic Procedures Procedure Name Priority Date/Time Associated Diagnosis Comments POCT GLYCATED HEMOGLOBIN, TOTAL Routine 08/13/2024 11:35 AM EDT Type 2 diabetes mellitus without complication, without long-term current use of insulin ([facility]) POCT GLUCOSE Routine 08/13/2024 11:35 AM EDT Type 2 diabetes mellitus without complication, without long-term current use of insulin ([facility]) HEPATITIS C AB W/REFL TO HCV RNA, QN, PCR Routine 04/24/2024 2:44 PM EST Annual physical exam ALBUMIN, RANDOM URINE W/CREATININE Routine 04/24/2024 2:44 PM EST Annual physical exam LIPID PANEL, STANDARD Routine 04/24/2024 2:44 PM EST Annual physical exam from Last 3 Months or Most Recently Relevant to Health Maintenance Results * (ABNORMAL) POCT HGB A1C (08/13/2024 11:35 AM EDT) Pathologist [facility] Hemoglobin A1C 9.0(A) 4.0 - 6.0 % QC Media Lot # [id number] Lot# Expiration Date Blood 08/13/2024 11:3 5 AM EDT Dominique Bojorquez MD POINT OF CARE GIOVANNI T ENTER/EDIT ORDERABLES Final Result * POCT Glucose (08/13/2024 11:35 AM EDT) Pathologist [facility] Glucose Blood, POC 180 60 - 200 mg/dL QC Media Lot # [id number] Lot# Expiration Date Blood Capillary blood specimen / Unknown 08/13/2024 11:35 AM EDT Dominique Bojorquez MD POINT OF CARE GIOVANNI T ENTER/EDIT ORDERABLES Final Result * (ABNORMAL) Albumin, Random Urine W/Creatinine (04/24/2024 2:44 PM EST) [facility] Creatinine, Urine 42.47 mg/dL [facility] Microalbumin Urine 19.0 mg/L [facility] Microalbum Creatinine Ratio Ur 44.7(H) <30 ug/mg cr [facility] Comment:Albumin/Creatinine R atio Reference Ranges: Normal: < 30 ug/mg creatinine Microalbuminuria: 30 - 300 ug/mg creatinineClinical Albuminuria: > 300 ug/mg creatinine Urine (Urine, Random) 04/24/2024 2:44 PM EST 04/24/2024 3:54 PM EST Dominique Bojorquez MD LAB URINE ORDERAB LES Final Result [facility] [address] [place] [phone] * Hepatitis C Antibody with Reflex to HCV, RNA, Quantitative, Real-Time PCR (04/24/2024 2:44 PM EST) Hepatitis C Antibody Nonreactive Nonreactive [facility] Comment:Antibodies to HCV no t detected; does not exclude early acuteHCV infection. Blood Venous blood specimen / Unknown 04/24/2024 2:44 PM EST 04/24/2024 3:56 PM EST Dominique Bojorquez MD LAB BLOOD ORDERAB LES Final Result Performing Organization Address City/[facility]/ZIP Co de Phone Number [facility] [address] [place] [phone] * Lipid Panel, Standard (04/24/2024 2:44 PM EST) Pathologist [facility] Triglycerides 105 <150 mg/dL [facility] Comment:Desirable Triglyceri de: less than 150 mg/dLBorderline High Triglyceride 150-199 mg/dLHigh Triglyceride: 200-499 mg/dLVery High Triglyceride: greater than or equal to 5OO mg/dL Cholesterol 155 <200 mg/dL [facility] Comment:Desirable Cholestero l: less than 200 mg/dLBorderline High Cholesterol: 200-239 mg/dLHigh Cholesterol: greater than 239 mg/dL LDL Cholesterol Calculated 72 <100 mg/dL [facility] Comment:Desirable LDL: less than 100 mg/dLNear Optimal/Above Optimal LDL: 110- 129 mg/dLBorderline High LDL: 130-159 mg/dLHigh LDL: 160-189 mg/dLVery High LDL: greater than or equal to 190 mg/dL HDL Cholesterol 62 >40 mg/dL [facility] Comment:Desirable HDL: great er than 40 mg/dL Note: This HDL assay may give artificially low results in patients with liver disease. Blood Venous blood specimen / Unknown 04/24/2024 2:44 PM EST 04/24/2024 3:56 PM EST us Dominique Bojorquez MD LAB BLOOD ORDERAB LES Final Result Performing Organization Address City/[facility]/ZIP Co de Phone Number [facility] [address] [place] [phone] [phone] from Last 3 Months or Most Recently Relevant to Health Maintenance Insurance MEDICARE Member Subscriber Plan / Payer ( fective 2022-Present) Name:Parker Berger Member ID:[id number] Relation to Subscriber:Self Name:GermanroseannafabriceParker Subscriber ID:[id number] Payer ID:STATE Group ID:Not on file Type:Medicare [facility] [address] [phone] [facility] Care Teams Wash Mill Operator Relationship Specialty Start Date End Date Dominique Santamaria MD [address] [place] [phone] PCP - General Internal Medicine 02/15/23
--- OUTSIDE RECORDS SUMMARY | 2024-09-17 13:23 | XMS_ITS | Encounter Summary ---
Author Organization [employer] [place] [facility] Address [address] [place] [phone] Care Team Providers Care Mc Kay Stitcher Name Role Phone Mamadou Patel MD Primary Care Provider [phone] Dominique Santamaria MD Primary Care Provider evelyne Encounter Details Date Type Department Care Team Description 12/20/2017 Release of Information [facility] [address] [place] [phone] Abstract, Provider Social History Tobacco Use Types Packs/Day Years [...] on filedocumented in this encounter Care Teams Mc Kay Stitcher Relationship Specialty Start Date End Date Mamadou Patel MD [address] [place] [phone] PCP - General Internal Medicine 10/28/17 01/20/24 Dominique Santamaria MD [address] [place] [address] PCP - General Internal Medicine 01/21/24 documented as of this encounter
--- OUTSIDE RECORDS SUMMARY | 2024-09-17 13:23 | XMS_ITS | Data Portability ---
Author Organization [place] - [facility], Allergy Address 100 [facility] 100 [place] [address] Care Team Providers Care Estate Planner Name Role Phone [facility] Primary Care Provider Assessment Encounter Date Assessment [...] Organization Details Last Modified Time Details Appointments None record ed. Lab None record ed. Referral None record ed. Procedures None record ed. Surgeries None record ed. Imaging None record ed. Medication Orders None record ed. Patient TargetsNo targets recorded. Patient InstructionsNo instructions recorded. Reason for Referral None Reported. Results Created Date Observation Date Name Description Value Unit Range Abnormal Flag Note LastModifiedBy Organization Detail LastModifiedTime 01/01/20 24 audio gram No observ ation record ed. [email or web address] Not Available 12/12 16:24:01 Result Notes None recorded. Problems Name Problem SNOMED Code Status Onset Date Resolution Date Notes Provider Name and Address Organization Details Recorded Time Sensorineur al hearing loss of bilateral ears 335739958 Active 2023 ANNELISE CESPEDES [address] [address], [place], [address], [facility] - [facility] 13:06:10 Bilateral tinnitus 5243038734759 Active 2023 OLMAN Horn MD 100 [facility] 100, [place], [address], [facility] - [facility] [place] 4 13:32:18 Impacted cerumen of bilateral ears 6618508158766 108 Active 2023 OLMAN Horn MD 100 [facility],[address], [address], [facility] - [facility] 4 13:37:57 Problem Notes None recorded. Procedures Surgical History Date Name Laterality Status Provider Name and Address Organization Details Recorded Time 4 Comp Audio with Tymps - 97354 & 82439 completed ANNELISE CESPEDES 100 [facility],[address] [address], [place], [address], [facility] - [facility] 01/01/2024 13:06:05 Cerumen removal without microscope completed OLMAN BARFIELD MD 100 [facility],[address] [address], [place], [address], [facility] - [facility] 01/01/2024 13:38:52 partial right hip replacement by prosthesis completed Bettie Bautista [facility] 01/01/2024 12:43:26 Imaging Results Imaging Date Name Status LastModified by Organiz ation Details LastModified Time 01/01/2024 audiogram completed [email or web address] Information n ot available 01/01/2024 16:24:01 Procedure Notes None recorded. Medical Equipment None Reported. Allergies No known drug allergies Medications Name Sig Start Date Stop Date Status Note LastModified by Organization Details LastModified Time losartan 50 mg tablet TAKE 1 TABLET BY MOUTH ONCE DAILY active Not Available Not Available No t Available aspirin 81 mg tablet,neyda yed release TAKE 1 TABLET BY MOUTH EVERY MORNING active Not Available Not Available No t Available tamsulosin 0.4 mg capsule TAKE 1 CAPSULE BY MOUTH DAILY 30 MINUTES AFTER SUPPER active Not Available Not Available No t Available epinephrine 0.3 mg/0.3 mL injection, auto-inject or INJECT INTRAMUSC ULARLY DIRECTED ON PACKAGE AND GO TO EMERGENCY ROOM active Not Available Not Available No t Available ciprofloxac in 0.3 %-dexametha sone 0.1 % ear drops,suspe nsion 12/31 completed Not Available Not Available Not Available rosuvastati n 10 mg tablet TAKE 1 TABLET BY MOUTH EVERY MORNING active Not Available Not Available No t Available FreeStyle Lite Strips TEST BLOOD SUGAR FOUR TIMES DAILY active Not Available Not Available No t Available Easy Touch Twist Lancets 33 gauge USE TO TEST BLOOD SUGAR FOUR TIMES DAILY active Not Available Not Available No t Available Jardiance 10 mg tablet TAKE 1 TABLET BY MOUTH EVERY MORNING active Not Available Not Available No t Available Vitals Date Recorded Body height Body mass index (BMI) Body weight Provider Name and Address Organization Details Last Updated DateTime 01/01/2024 170.18 cm 27.4 kg/m2 97227.66 g Bettie Bautista [place] - [facility] 01/01/2024 13:22:27 Social History None recorded. Functional Status None recorded. Mental Status None recorded. Family History Nothing Reported. Medical History No medical history recorded. Past Encounters Encounter ID Performer Location Encounter Start Date Encounter Closed Date Diagnosis/Indication Diagnosis SNOMED-CT Code Diagnosis ICD10 Code Diagnosis Note [id number] OLMAN BARFIELD MD [facility] [address] [address] 01/01/2024 12:22:34 01/01/2024 15:23:07 Sensorineural hearing loss of bilateral ears 859603501 H90.3 symmetric. I offered hearing aids but he declined citing the cost. Bilateral tinnitus 82190 19774 102 H93.13 Ear exam was normal. Audiogram was reviewed. We discussed the associatio n between sensorineu ral hearing loss and tinnitus. We discussed masking for tinnitus. Impacted c erumen of bilateral ears [id number] 053742 H61.23 Recurrent Cerumen Impactions : Ears were meticulous ly cleaned bilaterall y today with a curette and suction. The patient tolerated this well and will follow up for repeat debridemen t per routine. [id number] ANNELISE CESPEDES [facility] [address] [address] 01/01/2024 13:04:42 01/01/2024 15:09:18 Sensorineural hearing loss of bilateral ears 390753094 H90.3 Audiologic al evaluation results:Ri ght ear:{{Norm al sloping Mi ld* Modera te Moderat jose daniel-severe Severe Pr ofound Nor mal auditory thresholds }} to {{mild mod erate mode rately-sev ere* sever e profound with}} {{sensorin eural hearing loss with* cond uctive hearing loss with mixed hearing loss with}} {{excellen t good* fa ir poor no t measurable }} word recognitio n.Left ear:{{Norm al sloping Mi ld* Modera te Moderat jose daniel-severe Severe Pr ofound Nor mal auditory thresholds }} to {{mild mod erate mode rately-sev ere* sever e profound with}} {{sensorin eural hearing loss with* cond uctive hearing loss with mixed hearing loss with}} {{excellen t* good fa ir poor no t measurable }} word recognitio n.Tympanom etry:Right Ear:{{Type A Type As Type Ad* Type C Type C, shallow & rounded Ty pe B Type B with large volume Cou ld not maintain a hermetic seal}}Left Ear:{{Type A* Type As Type Ad Type C Type C, shallow & rounded Ty pe B Type B with large volume Cou ld not maintain a hermetic seal}} Health Concerns Section Related Observation LastModified by Organization Detai ls LastModified Time None Recorded Concern Status LastModified by Organization Details LastModified Time None Recorded Advance Directives Directive None Recorded Payers Insurance Date Sequence Insurance Name Policy Number Policy Lambert Covered Member ID Lambert Member ID Guarantor Name 06/23/2024 1 [place] [id number] Parker Berger [id number] Parker Berger Notes Date Note Type Note Provider Name and Address Organization Details Recorded Time 01/01/2024 text/html Hx of cerumen impaction. He noted worse hearing . He flushed his left ear and felt the hearing got worse. He had his ear cleaned at the [facility] and later he noted improved hearing . OLMAN BARFIELD MD [address], [address], [facility] - [facility] 01/01/2024 13:39:17 01/01/2024 text/html Audiological Evaluation HPIReported bypatient.Hearing loss perceived:hearing loss in both ears: no differences noted between ears Onset:gradual Use of amplification or other hearing devices:none (does not use amplification) ANNELISE CESPEDES [address] [place], [address], [facility] - [facility] 01/01/2024 13:18:02
--- OUTSIDE RECORDS SUMMARY | 2024-09-17 13:23 | XMS_ITS | Encounter Summary ---
Author Organization [facility] Address [address] [place] [address] Care Team Providers Care Tear Down Man Name Role Phone Mamadou Patel MD Primary Care Provider [phone] Dominique Santamaria MD Primary Care Provider U zaidaailable Reason for Visit * Reason Onset Date Comments Court Messenger Feedback 11/19/2017 PVC Encounter Details Date Type Department Care Team Description 11/19/2017 Telephone Adult Medicine B - [address] [id number] Mamadou Patel MD [address] [place] [address] Feedback (PVC) Social History Tobacco Use Types Packs/Day Years Used Date Smoking Tobacco: Former Smokeless Tobacco: Never Comments:quit on 1987 Alcohol Use Standard Drinks/Week Comments No 0 (1 standard drink = 0.6 oz pur e alcohol) Sex Assigned at Date Recorded Not on file documented as of this encounter Miscellaneous Notes * Telephone Encounter - Artur Pierre - 11/19/2017 8:39 AM EDT No insurance referral required per patient's insurance. Order faxed [facility] Cardiology [phone] and office notes can be pulled from the office by [facility] Cardiology [phone] Notification letter mailed to patient, PVC will contact patient with appointment information documented in this encounter Plan of Treatment Not on file documented as of this encounter Visit Diagnoses Not on filedocumented in this encounter Care Teams Tear Down Man Relationship Specialty Start Date End Date Mamadou Patel MD [address] [place] [address] PCP - General Internal Medicine 10/28/17 01/20/24 Dominique Santamaria MD [address] [place] [address] PCP - General Internal Medicine 01/21/24 documented as of this encounter
--- OUTSIDE RECORDS SUMMARY | 2024-09-17 13:23 | XMS_ITS | Clinical Summary ---
Author Organization 175 [facility] Address [address] [place] [address] Phone Care Team Providers Care Blanket Winder Operator Name Role Phone Physician, Pcp Unknown Primary Care Provider Lyla vailable Social History Tobacco Use Types Packs/Day Years Used Date Smoking Tobacco: Never Assessed Sex and Gender Information Value Date Recorded Sex Assigned at Not on file Legal Sex Male 10:44 AM EDT Gender Identity Not on file Sexual Orientation Not on file Plan of Treatment Health Maintenance Due Date Last Done Comments Diabetes: Annual GFR (Glomer ular Filtration Rate) 1952 Diabetes: Annual Foot Exam 1962 Diabetes: Annual Retina Eye Exam 1962 DTaP,Tdap,and Td Vaccines (1 - Tdap) 1971 Pneumococcal Vaccine: 50+ Ye ars (1 of 2 - PCV) 1971 Zoster Vaccines (1 of 2) 2002 COVID-19 Vaccine ( - 2023-2 5 season) 2024 Abdominal Aortic Aneurysm (A AA) Screen 09/11/2024 Cholesterol Screening (Lipid Panel) 09/11/2024 Colorectal Cancer Screening: Colonoscopy 09/11/2024 Depression Screening 09/11/2024 Diabetes: Annual Urine Albumin-Creatinine Ratio (uACR) 09/11/2024 Diabetes: Blood Sugar Contro l Test (HGBA1C) 09/11/2024 Falls Risk Assessment 09/11/2024 Medicare Annual Wellness Visit 09/11/2024 Social Influencers of Health Screening 09/11/2024 Influenza Vaccine (Season Ended) 2025 RSV Immunization Adult Patie nts (1 - 1-dose 75+ series) 2027 Hepatitis C Screening Completed 06/12/2022 HIB Vaccines Aged Out No longer eligi [...] on patient's age to complete this topic MMR Vaccines Aged Out No longer eligi ble based on patient's age to complete this topic Meningococcal ACWY Vaccine Aged Out N o longer eligible based on patient's age to complete this topic Meningococcal B Vaccine Aged Out No l onger eligible based on patient's age to complete this topic RSV Immunization Patients Un sandra 20 months Aged Out No longer eligible b ased on patient's age to complete this topic Varicella Vaccines Aged Out No longer eligible based on patient's age to complete this topic Insurance [address] [place] [id number] MEDICARE MEDICAID - [place] [address] [place] [address] Care Teams Blanket Winder Operator Relationship Specialty Start Date End Date Physician, Pcp Unknown PCP - General 09/11/24
[2024-09-17] MEDS: iohexoL 350 MG/ML 100 ML INFUS..BTL IV (14:29)
[2024-09-17] MEDS: Barium Sulfate Oral (Vanilla) 450 ML ORAL.SUSP 900 ML PO (14:30)
[2024-09-18 08:21] LABS: Creatinine POC 1.1 mg/dL (0.5-1.4); GFR POC > 60
== END 2024-09-17 11:51 | disposition home or self-care (01) ==
LOC: HO.CT 11:50
PROVIDERS: PCP Student in an Organized Health Care Education/Training Program; Visit Provider Student in an Organized Health Care Education/Training Program
DX: R93.89 Abnormal findings on diagnostic imaging of other specified body structures (principal)
CPT/HCPCS: 74177; 82565; Q9967

== ENCOUNTER → 2024-09-17 11:52 | Outpatient (BNV) | payer MEDICARE, MEDICAID, SELFPAY | PROVIDERS: PCP Student in an Organized Health Care Education/Training Program; Visit Provider Radiology Diagnostic Radiology | DX: K31.89 Other diseases of stomach and duodenum (principal) | CPT/HCPCS: 74177 ==

== ENCOUNTER 2025-01-12 14:30 | Outpatient (REF) | payer MEDICARE, MEDICAID, SELFPAY ==
--- OUTSIDE RECORDS SUMMARY | 2025-01-12 15:15 | XMS_ITS | Encounter Summary ---
Author Organization [employer] Address [address] [place] [address] [address] [place] [address] Care Team Providers Care Workday Consultant Name Role Phone Dominique Santamaria MD Primary Care Pro vider Reason for Visit * Reason Comments Pre-op Exam Encounter Details Date Type Department Care Team ([facility] st Contact Info) Description 01/12/2025 3:15 PM EDT Office Visit [facility] MEDICINE [address] [place], [place] [phone] Kaya Askew NP [address] [place], [place] [phone] Arrived Social History Tobacco Use Types Packs/Day Years Used Date Smoking Tobacco: Former Cigarettes Smokeless Tobacco: Never Comments:Started smoking 21 y of age and [...] Orientation Straight 01/16/2024 11 :08 AM EDT documented as of this encounter Plan of Treatment Upcoming Encounters Date Type Department Care Team (Late st Contact Info) Description 01/21/2025 2:15 PM EDT Office Visit [facility] MEDICINE [address] [place] [address] Dominique Santamaria MD [address] [place] [address] documented as of this encounter Visit Diagnoses Not on filedocumented in this encounter Additional Health Concerns Assessment Noted Time PHQ-9 Depression Total Score: 7 04/30/20 24 11:40 AM EST documented as of this encounter Care Teams Workday Consultant Relationship Specialty Start Date End Date Dominique Santamaria MD [address] [place] [address] PCP - General Internal Medicine 02/15/23 documented as of this encounter
--- OUTSIDE RECORDS SUMMARY | 2025-01-12 15:42 | XMS_ITS | Encounter Summary ---
Author Organization [employer] [facility] Address [address] [place] [address] Care Team Providers Care Client Engagement Manager Name Role Phone Mamadou Patel MD Primary Care Provider [phone] Dominique Santamaria MD Primary Care Provider evelyne Encounter Details Date Type Department Care Team Description 06/16/2018 Orders Only Adult Medicine A - [address] [address] Whitley Nugent APRN [address] [place] [address] Social History Tobacco Use Types Packs/Day Years [...] on filedocumented in this encounter Care Teams Client Engagement Manager Relationship Specialty Start Date End Date Mamadou Patel MD [address] [place] [address] PCP - General Internal Medicine 10/28/17 01/20/24 Dominique Santamaria MD [address] [place] [address] PCP - General Internal Medicine 01/21/24 documented as of this encounter
--- OUTSIDE RECORDS SUMMARY | 2025-01-12 15:42 | XMS_ITS | Encounter Summary ---
Author Organization [employer] Address [address] [place] [address] [address]t [place] [address] Care Team Providers Care Promotions Executive Producer Name Role Phone Dominique Santamaria MD Primary Care Pro vider Encounter Details Date Type Department Care Team (Latest Contact Info) Description 01/12/2025 Travel Social History Tobacco Use Types Packs/Day Years [...] is your housing situation today? I have salmareid carreno 01/01/[address] you [...] Description 01/21/2025 2:15 PM EDT Office Visit [facility] MEDICINE [address] [place] [address] Dominique Santamaria MD [address] [place] [address] documented as of this encounter Visit Diagnoses Not on filedocumented in this encounter Additional Health Concerns Assessment Noted Time PHQ-9 Depression Total Score: 7 04/30/20 24 11:40 AM EST documented as of this encounter Care Teams Promotions Executive Producer Relationship Specialty Start Date End Date Dominique Santamaria MD [address] [place] [address] PCP - General Internal Medicine 02/15/23 documented as of this encounter
--- OUTSIDE RECORDS SUMMARY | 2025-01-12 15:42 | XMS_ITS | Encounter Summary ---
Author Organization [employer] Address [address] [place] [address] 7 [place] [address] Care Team Providers Care Contribution Solicitor Name Role Phone Dominique Santamaria MD Primary Care Pro vider Reason for Visit * Reason Onset Date Comments PT1 12/21/2024 Encounter Details Date Type Department Care Team ([facility] st Contact Info) Description 12/21/2024 Telephone [facility] MEDICINE [address] [place], [place] [phone] Dominique Santamaria MD [address] [place], [place] [phone] PT1 Social History Tobacco Use Types Packs/Day Years [...] AM EDT documented as of this encounter Miscellaneous Notes * Telephone Encounter - Neeraj Osborne - 12/21/2024 1:48 PM EDT Patient calling requesting PT1 Home Address verified: Y/N: Yes Provider name or facility name: [facility] Escort needed: Y/N: No Do you have a wheelchair: Y/N: No Visits: (2x month) documented in this encounter Plan of Treatment Upcoming Encounters Date Type Department Care Team (Late st Contact Info) Description 01/21/2025 2:15 PM EDT Office Visit [facility] MEDICINE [address] [place] [address] Dominique Santamaria MD [address] [place] [address] documented as of this encounter Visit Diagnoses Not on filedocumented in this encounter Additional Health Concerns Assessment Noted Time PHQ-9 Depression Total Score: 7 04/30/20 24 11:40 AM EST documented as of this encounter Care Teams Contribution Solicitor Relationship Specialty Start Date End Date Dominique Santamaria MD [address] [place] [address] PCP - General Internal Medicine 02/15/23 documented as of this encounter
--- OUTSIDE RECORDS SUMMARY | 2025-01-12 15:42 | XMS_ITS | Clinical Summary ---
Author Organization 175 [facility] Address [address] [place] [address] Phone Care Team Providers Care Power Line Lineman Name Role Phone Physician, Pcp Unknown Primary Care Provider Lyla vailable Encounters Date Type Department Care Team Description 10/22/2024 Telephone [facility] Cardiology [facility] [address] [facility] [address] [place] [address] Juancarlos Santamaria MD from Last 3 Months Social History Tobacco Use Types Packs/Day Years Used Date Smoking Tobacco: Never Assessed Sex and Gender Information Value Date Recorded Sex Assigned at Not on file Legal Sex Male 10:44 AM EDT Gender Identity Not on file Sexual Orientation Not on file Plan of Treatment Upcoming Encounters Date Type Department Care Team ([facility] Contact Info) Description 03/11/2025 3:00 PM EDT Office Visit [facility] [address] [facility] [address] [place] [address] Hunter Blair MD [address] [place] [address] [place] [address] Health Maintenance Due Date Last Done Comments Diabetes: Annual GFR (Glomer ular Filtration Rate) 1952 Diabetes: Annual Foot Exam 1962 Diabetes: Annual Retina Eye Exam 1962 DTaP,Tdap,and Td Vaccines (1 - Tdap) 1971 Pneumococcal Vaccine: 50+ Ye ars (1 of 2 - PCV) 1971 Zoster Vaccines (1 of 2) 2002 Depression Screening 05/13/2024 Abdominal Aortic Aneurysm (A AA) Screen 09/11/2024 Cholesterol Screening (Lipid Panel) 09/11/2024 Colorectal Cancer Screening: Colonoscopy 09/11/2024 Diabetes: Annual Urine Albumin-Creatinine Ratio (uACR) 09/11/2024 Diabetes: Blood Sugar Contro l Test (HGBA1C) 09/11/2024 Falls Risk Assessment 09/11/2024 Medicare Annual Wellness Visit 09/11/2024 Social Influencers of Health Screening 09/11/2024 COVID-19 Vaccine ( - 2023-2 5 season) 2025 Influenza Vaccine (#1) 2025 RSV Immunization Adult Patie nts (1 [...] age to complete this topic Insurance [address] [place] [address] MEDICARE MEDICAID - [place] [address] [place] [address] Care Teams Power Line Lineman Relationship Specialty Start Date End Date Physician, Pcp Unknown PCP - General 09/11/24 JUANCARLOS VENTURA Primary Care Provider 09/11/24
--- OUTSIDE RECORDS SUMMARY | 2025-01-12 15:42 | XMS_ITS | Encounter Summary ---
Author Organization [employer] [facility] Address [address] [place] [address] Care Team Providers Care Personal Property Appraiser Name Role Phone Mamadou Patel MD Primary Care Provider [phone] Dominique Santamaria MD Primary Care Provider evelyne Encounter Details Date Type Department Care Team Description 12/20/2017 Release of Information [facility] Center [address] [place] [phone] Abstract, Provider Social History Tobacco Use Types [...] on filedocumented in this encounter Care Teams Personal Property Appraiser Relationship Specialty Start Date End Date Mamadou Patel MD [address] [place] [address] PCP - General Internal Medicine 10/28/17 01/20/24 Dominique Santamaria MD [address] [place] [address] PCP - General Internal Medicine 01/21/24 documented as of this encounter
--- OUTSIDE RECORDS SUMMARY | 2025-01-12 15:42 | XMS_ITS | Clinical Summary ---
Author Organization [facility] Address [address] [place] [address] [address] [place] [address] Care Team Providers Care Program Director Name Role Phone Dominique Santamaria MD Primary Care Pro vider Allergies Active Allergy Reactions Criticality Noted Date Comments Bee Venom Swelling 11/07/2017 Angioedema Tramadol 10/17/2020 Other reaction(s): Nausea / Vomiting Medications Blood Pressure Monitoring (Omron 3 Series BP Monitor) device USE TO CHECK BLOOD PRESSURE 2 Active EPINEPHrine (Epipen) 0.3 MG/0.3ML injection syringe Inject 0.3 mL (0.3 mg) as directed 1 (one) time if needed for anaphylaxis for up to 1 dose. Inject into upper leg. Call 911 after use. 1 each 4 Active glucose blood (FREESTYLE LITE) test stripIndications :Type 2 diabetes mellitus with other specified complication, unspecified whether mcc insulin use ([facility]) TEST BLOOD SUGAR EVERY DAY 50 each 11 5 Active rosuvastatin (Crestor) 10 MG tabletIndication s:Dyslipidemia TAKE 1 TABLET BY MOUTH EVERY MORNING 90 tablet 1 5 Active losartan (Cozaar) 50 MG tabletIndication s:Primary hypertension TAKE 1 TABLET BY MOUTH ONCE DAILY 90 tablet 1 5 Active tamsulosin (Flomax) 0.4 MG 24 hr capsuleIndicatio ns:Benign prostatic hyperplasia, unspecified whether lower urinary tract symptoms present TAKE 1 CAPSULE BY MOUTH DAILY 30 MINUTES AFTER SUPPER 90 capsule 5 Active Aspirin Low Dose 81 MG EC tablet TAKE 1 TABLET BY MOUTH EVERY MORNING 90 tablet 5 Active TRUEplus Lancets 33G miscIndications: Type 2 diabetes mellitus with other specified complication, unspecified whether local intermodal truck driver insulin use ([facility]) TEST BLOOD SUGAR EVERY DAY 100 each 11 5 Active Jardiance 25 MG TAKE 1 TABLET BY MOUTH DAILY 90 tablet 5 Active Active Problems Problem Noted Date Diagnosed [...] Bilateral Diabetes mellitus type 2, uncomplicated 11/20/19 Overview (06/18/2022): Will order albumin to check for microalbuminuria, lipid panel, and CMP Last a1c: 6.6 on 12/11/21 Assessment & Plan (12/22/2022 10:56 PM EDT): A1c 6.4 on 12/06/22 Glucose: 144 on 12/06/22 Continue Jardiance 10 mg F/u PRN Atrial fibrillation 11/07/2017 Overview (12/22/2022): Holter monitor (11/28/17): Normal sinus rhythm with sinus bradycardia, heart range was 47-135 beats a minute 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 Sinus bradycardia was 10 hours. [...] Encounters Date Type Department Care Team Description 01/12/2025 3:15 PM EDT Office Visit [facility] [address] [place] [address] Kaya Askew NP Arrived 01/12/2025 Travel 12/30/[address] [phone] Dominique Santamaria MD Pre-op Visit 12/21/2024 Patient Outreach [facility] [address] [place], [place] [phone] Dominique Santamaria MD 12/21/2024 Telephone [facility] [address] [place] [address] Dominique Santamaria MD PT1 12/10/2024 3:00 PM EDT Office Visit [facility] [address] [place] [address] Leticia Grady, OD Type 2 diabetes mellitus without ophthalmic manifestations (CMS/HCC) (Primary Dx); Anatomical narrow angle of both eyes; Age-related nuclear cataract of both eyes; Hyperopia of both eyes with regular astigmatism and presbyopia 12/10/2024 Travel 12/03/2024 Travel 11/12/2024 2:15 PM EDT Office Visit [facility] [address] [place] [address] Dominique Santamaria MD Type 2 diabetes mellitus without complication, without long-term current use of insulin (CMS/HCC) (Primary Dx); Longstanding persistent atrial fibrillation (CMS/HCC); Dyslipidemia; Hypertension, unspecified type; Class 1 obesity due to excess calories without serious comorbidity with body mass index (BMI) of 30.0 to 30.9 in adult; Health care maintenance; Memory loss; Abnormal finding on CT scan 11/12/2024 Travel 11/11/2024 Travel 11/11/2024 Telephone [facility] [address] [place] [address] Dominique Santamaria MD chart prep 11/11/2024 Telephone [facility] [address] [place] [address] Dominique Santamaria MD chart prep 11/09/2024 Refill [facility] [address] [place] [address] Dominique Santamaria MD 10/21/2024 Refill [facility] [address] [place] [address] Dominique Santamaria MD Type 2 diabetes mellitus with other specified complication, unspecified whether mcc insulin use (CMS/HCC) 10/19/2024 Refill [facility] [address] [place], [place] [phone] April Canseco ANP from Last 3 Months Immunizations Immunization Administration Dates Next Due Pfizer Covid-19 Vaccine 12+ 02/12/2024 Pneumococcal Conjugate PCV 20 12/11/2021 RSV Bivalent 03/26/2024 Tdap 10/17/2020 Zoster, Recombinant 03/26/2024 Family History Medical History Relation Name Comments Alcohol abuse Father lung cancer fpor smoking ,[place] Mother Relation Name Status Comments Father Mother [...] Sign Reading Time Taken Comments Blood Pressure 130/82 01/12/2025 3:41 PM EDT Pulse 54 01/12/2025 3:41 PM EDT Temperature 36.8 C (98.3 F) 01/12/2025 3:41 PM EDT Respiratory Rate 13 01/12/2025 3:41 PM EDT Oxygen Saturation 94% 01/12/2025 3:41 PM EDT Inhaled Oxygen Concentration - - Weight 87.5 kg (192 lb 12.8 oz) 01/12/2025 3:41 PM EDT Height 170.2 cm (5' 7 ) 01/12/2025 3:41 PM EDT Body Mass Index 30.2 01/12/2025 3:41 PM EDT Plan of Treatment Upcoming Encounters Date Type Department Care Team (Late st Contact Info) Description 01/21/2025 2:15 PM EDT Office Visit [facility] [address], [place] [phone] Dominique Santamaria MD [address] [place] [address] Health Maintenance Due Date Last Done Comments CT Colonography 1952 Colonoscopy 1952 Colorectal Cancer Screening 1952 FIT DNA/Cologuard 1952 FIT 1952 FOBT 1952 Sigmoidoscopy 1952 Diabetes: Foot Exam 1962 Zoster Vaccines (2 of 2) 05/21/2024 03/26/2024 Diabetes: Hemoglobin A1C 11/12/2024 025, 04/24/2024, 01/16/2024, Additional history exists SDOH Screening 12/31/2024 01/01/2024 COVID-19 Vaccine ( season) 2025 02/12/2024, 11/21/2020, 10/28/2020 Influenza Vaccine (#1) 2025 Diabetes: Urine Protein Screening 04/24/2025 04/24/2024, 06/12/2022, 2020 Lipid Panel 04/24/2025 04/24/2024, 05/15, 12/11/2021, Additional history exists Alcohol/Substance Use Screening 04/30/2025 04/30/2024 Depression Screening 04/30/2025 04/30/2024, 04/30/20 24 Tobacco Screening 12/10/2025 12/10/2024 Eye Exam 12/10/2026 12/10/2024, 11/12, 12/10/2024, Additional history exists DTaP/Tdap/Td Vaccines (2 - Td or Tdap) 10/17/2030 10/17/2020 Pneumococcal Vaccine: 50+ Years Completed 12/11/2021 RSV Patients and Patients Aged 60 years [...] complication, without long-term current use of insulin ([facility]) HEPATITIS C AB W/REFL TO HCV RNA, QN, PCR Routine 04/24/2024 2:44 PM EST Annual physical exam ALBUMIN, RANDOM URINE W/CREATININE Routine 04/24/2024 2:44 PM EST Annual physical exam LIPID PANEL, STANDARD Routine 04/24/2024 2:44 PM EST Annual physical exam from Last 3 Months or Most Recently Relevant to Health Maintenance Results * (ABNORMAL) POCT HGB A1C (08/13/2024 11:35 AM EDT) Hemoglobin A1C 9.0(A) 4.0 - 6.0 % QC Media Lot # [id number] Lot# Expiration Date Blood 08/13/2024 11:3 5 AM EDT Dominique Bojorquez MD POINT OF CARE GIOVANNI T ENTER/EDIT ORDERABLES Final Result * (ABNORMAL) Albumin, Random Urine W/Creatinine (04/24/2024 2:44 PM EST) Creatinine, Urine 42.47 mg/dL [facility] Microalbumin Urine 19.0 mg/L H [facility] Microalbum Creatinine Ratio Ur 44.7(H) <30 ug/mg cr [facility] Comment:Albumin/Creatinine R atio Reference Ranges: Normal: < 30 ug/mg creatinine Microalbuminuria: 30 - 300 ug/mg creatinineClinical Albuminuria: > 300 ug/mg creatinine Urine (Urine, Random) 04/24/2024 2:44 PM EST 04/24/2024 3:54 PM EST us Dominique Bojorquez MD LAB URINE ORDERAB LES Final Result Performing Organization Address [facility]/ZIP Co de Phone Number [facility] [address] [place] [phone] * Hepatitis C Antibody with Reflex to HCV, RNA, Quantitative, Real-Time PCR (04/24/2024 2:44 PM EST) Hepatitis C Antibody Nonreactive Nonreactive [facility] Comment:Antibodies to HCV no t detected; does not exclude early acuteHCV infection. Blood Venous blood specimen / Unknown 04/24/2024 2:44 PM EST 04/24/2024 3:56 PM EST us Dominique Bojorquez MD LAB BLOOD ORDERAB LES Final Result Performing Organization Address [facility]/ZIP Co de Phone Number [facility] [address] [place] [phone] * Lipid Panel, Standard (04/24/2024 2:44 PM EST) Triglycerides 105 <150 mg/dL [facility] Comment:Desirable Triglyceri de: less than 150 mg/dLBorderline High Triglyceride 150-199 mg/dLHigh Triglyceride: 200-499 mg/dLVery High Triglyceride: greater than or equal to 5OO mg/dL Cholesterol 155 <200 mg/dL [facility] Comment:Desirable Cholestero l: less than 200 mg/dLBorderline High Cholesterol: 200-239 mg/dLHigh Cholesterol: greater than 239 mg/dL LDL Cholesterol Calculated 72 <100 mg/dL [facility] Comment:Desirable LDL: less than 100 mg/dLNear [...] MD LAB BLOOD ORDERAB LES Final Result [facility] [address] [place] [phone] from Last 3 Months or Most Recently Relevant to Health [place] [id number] [facility] STANDARD Care Teams Program Director Relationship Specialty Start Date End Date Dominique Santamaria MD [address] [place] [phone] PCP - General Internal Medicine 02/15/23
--- OUTSIDE RECORDS SUMMARY | 2025-01-12 15:42 | XMS_ITS | Encounter Summary ---
Author Organization [facility] Address [address] [place] [address] Care Team Providers Care Group Activities Aide Name Role Phone Dominique Santamaria MD Primary Care Provider U evelyne Reason for Visit * Reason Onset Date Comments Medical Records 02/19/2024 Encounter Details Date Type Department Care Team Description 02/19/2024 Telephone Medical Records [address] [place] [id number] Abstract, Provider Medical Records Social History Tobacco Use Types Packs/Day Years [...] on filedocumented in this encounter Care Teams Group Activities Aide Relationship Specialty Start Date End Date Dominique Santamaria MD PCP - General Internal Medicine 01/21/24 documented as of this encounter
[2025-01-12 16:31] LABS: Hemoglobin A1C 243.0676 umol/L; Total Hemoglobin (HGBA1C) 3856.3098 umol/L
[2025-01-12 16:37] LABS: Alanine Aminotransferase 16 U/L (0-40); Albumin Level 4.5 g/dL (3.5-5.0); Anion Gap 11 (12-20); Aspartate Amino Transferase 24 U/L (5-37); Blood Urea Nitrogen 20 mg/dL (9-16); Calcium 9.2 mg/dL (8.4-10.2); Carbon Dioxide 25 mmol/L (22-29); Chloride 108 mmol/L (96-108); Cholesterol 144 mg/dL (<200); Estimated Glomerular Filt Rate > 60; HDL Cholesterol 56 mg/dL (>40); Potassium 4.4 mmol/L (3.3-5.1); Sodium 140 mmol/L (135-145); Total Protein 7.7 g/dL (6.5-8.0); Triglycerides 76 mg/dL (<150)
[2025-01-12 16:47] LABS: Alkaline Phosphatase 75 U/L (39-117)
[2025-01-12 17:04] LABS: Folate 12.6 ng/mL (> or = 4.0)
[2025-01-12 17:22] LABS: Vitamin B12 653 pg/mL (200-900)
[2025-01-12 17:56] LABS: Microalbum/Creatinine Ratio Ur 32.8 ug/mg cr (<30)
== END 2025-01-12 14:31 | disposition home or self-care (01) ==
LOC: HO.HHCL 14:30
PROVIDERS: PCP Student in an Organized Health Care Education/Training Program; Visit Provider Student in an Organized Health Care Education/Training Program
DX: E11.9 Type 2 diabetes mellitus without complications (principal)
CPT/HCPCS: 36415; 80053; 80061; 82043; 82570; 82607; 82746; 83036